=== PATIENT | male | born 1995 | race African-American/Black ===

== ENCOUNTER 2018-09-05 23:01 | Inpatient (IN) | payer OTHER ==
[~2018-09-05] VITALS: Ht 193 cm; Wt 78.4 kg
[2018-09-06 00:14] LABS: HEMATOCRIT 43.7 % (42.0-52.0); HEMOGLOBIN 14.8 g/dl (13.5-17.5); MEAN CORPUSCULAR HEMOGLOBIN 29.7 pg (27.0-33.0); MEAN CORPUSCULAR HGB CONC 33.9 g/dl (32.0-36.5); MEAN CORPUSCULAR VOLUME 87.6 fl (80.0-96.0); PLATELET COUNT, AUTOMATED 309 10^3/uL (150-450); RED BLOOD COUNT 4.99 10^6/uL (4.30-6.10); WHITE BLOOD COUNT 6.6 10^3/uL (4.0-10.0)
[2018-09-06 00:24] LABS: AMPHETAMINES LEVEL URINE NEGATIVE (NEGATIVE); BARBITURATES URINE NEGATIVE (NEGATIVE); BENZODIAZEPINES URINE NEGATIVE (NEGATIVE); CANNABINOIDS URINE NEGATIVE (NEGATIVE); COCAINE METABOLITE URINE NEGATIVE (NEGATIVE); METHADONE URINE NEGATIVE (NEGATIVE); OPIATES URINE NEGATIVE (NEGATIVE); PHENCYCLIDINE URINE NEGATIVE (NEGATIVE)
[2018-09-06 00:39] LABS: ACETAMINOPHEN LEVEL < 2.0 UG/ML (10.0-30.0); ALT/SGPT 38 U/L (12-78); BILIRUBIN,DIRECT 0.2 MG/DL (0.0-0.2); BILIRUBIN,TOTAL 0.7 MG/DL (0.2-1.0); BLOOD UREA NITROGEN 13 MG/DL (7-18); CALCIUM LEVEL 8.4 MG/DL (8.5-10.1); CARBON DIOXIDE LEVEL 29 MEQ/L (21-32); CHLORIDE LEVEL 106 MEQ/L (98-107); CREATININE FOR GFR 1.03 MG/DL (0.70-1.30); ETHYL ALCOHOL (ETHANOL) < 0.003 % (0.000-0.010); GLOMERULAR FILTRATION RATE > 60.0 (>60); GLUCOSE, FASTING 58 MG/DL (70-100); SALICYLATE LEVEL < 1.7 MG/DL (5.0-30.0); SODIUM LEVEL 143 MEQ/L (136-145); TOTAL PROTEIN 7.5 GM/DL (6.4-8.2)
[2018-09-06] MEDS ORDERED: MAALOX 30 ML SUSP *UDC PO PRN (01:15)
[2018-09-06] MEDS ORDERED: traZODone 50 MG TAB PO PRN (01:15)
[2018-09-06] MEDS ORDERED: MOM 30ML SUSPENSION UDC PO PRN (01:15)
[2018-09-06] MEDS ORDERED: ACETAMINOPHEN TAB 650MG DOSE (2X325MG) PO PRN (01:15)
[2018-09-06 01:57] VITALS: BP 142/94
[2018-09-06] MEDS ORDERED: CEPACOL LOZENGE PO PRN (11:45)
--- NOTE | 2018-09-06 12:37 | HPEPDOC ---
General Date of Admission September 06, 2018 at 01:05 Chief Complaint The patient is a 23-year-old male admitted with a reason for visit of Unspecifi ed Depressive Disorder. History of Present Illness Patient is a 23-year-old male, without any prior medical history, brought to the hospital by his spouse on account of suicidal attempt. There is documentation that patient had a knife to his wrist, stating he wanted to end it all. Patient expressed the same sentiment during triage on admission. Reason for episode was due to frustration at work, and frustration with current environment. On assessment today he denies any chest pain, shortness of breath, chills, fever, nausea, headache. Home Medications No Active Prescriptions or Reported Meds Allergies Coded Allergies: No Known Allergies (Unverified , 09/05/18) Past Medical History Medical History Denies Surgical History Denies Family History Significant Family History: No pertinent family hx Denies Social History * Smoker: current smoker (vapes) Alcohol: occationally Drugs: denies A-FIB/CHADSVASC A-FIB History Current/History of A-Fib/PAF?: No Current Oral Anticoagulant The: No Review of Systems Other systems A pertinent 10 point review of systems was completed, negative except as stated in history of presenting illness. Physical Examination Other physical findings GENERAL: NAD SKIN : Warm, dry intact HEENT: Atraumatic, normocephalic, PERRL, moist mucous membrane CARDIOVASCULAR: Regular rate and rhythm, S1S2, no JVD, no edema, distal pulses + and palpable RESP: CTAB, no accessory muscle use noted ABDOMEN: BS+ non distended non tender MS: no joint deformities NEURO: Alert and oriented x 3, CN2-12 grossly intact PSYCH: no anxiety or agitation, appropriate mood and affect. Vital Signs Vital Signs Date Time Temp Pulse Resp B/P (MAP) Pulse Ox O2 Delivery O2 Flow Rate FiO2 09/06/18 01:57 97.9 48 18 142/94 (110) 09/05/18 23:31 100 Room Air Laboratory Data Labs 24H Laboratory Tests 2 09/05/18 23:35: Nucleated Red Blood Cells % (auto) 0.0, Anion Gap 8, Glomerular Filtration Rate > 60.0, Calcium Level 8.4L, Aspartate Amino Transf (AST/SGOT) 41H, Alanine Aminotransferase (ALT/SGPT) 38, Alkaline Phosphatase 93, Total Bilirubin 0.7, Direct Bilirubin 0.2, Total Protein 7.5, Albumin 4.0, Albumin/Globulin Ratio 1.14, Thyroid Stimulating Hormone (TSH) 1.470, Salicylates Level < 1.7L, Urine Amphetamines Screen NEGATIVE, Urine Benzodiazepines Screen NEGATIVE, Urine Opiates Screen NEGATIVE, Urine Methadone Screen NEGATIVE, Acetaminophen Level < 2.0L, Urine Barbiturates Screen NEGATIVE, Urine Phencyclidine Screen NEGATIVE, Urine Cocaine Metabolite Screen NEGATIVE, Urine Cannabinoids Screen NEGATIVE, Ethyl Alcohol Level < 0.003 CBC/BMP Laboratory Tests 09/05/18 23:35 Red Blood Count 4.99, Mean Corpuscular Volume 87.6, Mean Corpuscular Hemoglobin 29.7, Mean Corpuscular Hemoglobin Concent 33.9, Red Cell Distribution Width 11.9 Assessment/Plan Suicidal attempt Anxiety and depression DVT prophylaxis PLAN DVT prophylaxis not indicated that this time since patient is frequently ambulatory in the unit At this time patient has no acute medical problems or underlying comorbidities requiring active follow-up. Medical team will sign off, please re-consult as needed. Plan / VTE VTE Prophylaxis Ordered?: No VTE Exclusion Mechanical Proph: Low Risk for VTE MORE LOCK September 06, 2018 12:37
--- NOTE | 2018-09-06 13:11 | MHHPEPDOC ---
General Date Of Admission: September 06, 2018 Legal Status: 9.39 Chief Complaint "I was angry and grabbed a knife to cut myself went into the bathroom and I did it" History of Present Illness HISTORY OF THE PRESENT ILLNESS: Patient is a 23 -year-old , male, who , according to Ed report: "Pt states that he was in a good mood after returning home from seeing a movie but then he had an argument with his . He got a knife from the kitchen & made some superficial cuts to his wrist. Pt states that he was suicidal at the time he made the cuts, but denies SI now. 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 He does like being in the [employer]. He has been in the [employer] for nine months with no deployments. Pt denies depression but admits to having anxiety. He denies any other mental health sx's. He denies any prior psych hx or tx. TW spoke to pt's & she states that pt was "trying to cut himself" with a kitchen knife & when she asked why he refused to talk to her. She took the kife away from him but he got another one & locked himself in the bathroom so she called 911. She feels that he was just cutting in order to get a reaction out of her." Psychiatric Review of Systems Depression (2 or more weeks): denies Reba (4 or more days of): denies Psychosis: denies PTSD: denies Anxiety: denies Past Psychiatric History Previous Psychiatric Diagnosis: Denies Previous Psychiatric Admissions: Denies Suicide Attempts: Denies Psychiatric Follow-up: None Psychiatric medications: None. Past Medical History Medical Problems None that he is aware of Head Injury: No Seizures: No Hospitalizations: No Surgeries: No Family Medical/Psychiatric HX Medical Problems None Psychiatric Disorders: No Addiction: No Suicide Attemps/Completions: No Addiction History nicotine (He vapes), alcohol (on Saturdays) Social History Childhood: he had a good childhood. Was born in [place], his parents moved to [place] for some time and they returned to [place]. He has siblings, they got along pretty well, he enjoyed going to school, got A's and B's, never was bullied. Abuse/Trauma: Denies Current Living Situation: Off post, in [employer], with his Education: HS diploma Employment: [employer] soldier Social Support: His , his family, his friends in the Legal: Denies Marital: ,no children Mental Status Examination General Appearance: well groomed, appears stated age Build: tall Demeanor: average Eye Contact: average Activity: slowed Behavior: cooperative Speech: clear, spontaneous, reg/rate,rhythm,volume Mood: euthymic Affect: constricted, appropriate, congruent Thought Process: logical/linear Thought Content (Delusions): none reported Thought Content (Other): none reported Thought Content (Aggressive): none reported Perception (Hallucinations): none reported Perception (Other): none reported Cognition (Impairment of): none reported Cognition(Intelligence Est.): average Oriented: Awake, Alert, Oriented times three Insight: fair Judgment: Fair Psychosis: Denies Diagnoses 1. Other specified mood disorder 2. R/O Poor impulse control disorder 3. R/O Cluster B personality traits A-FIB/CHADSVASC A-FIB History Current/History of A-Fib/PAF?: No Current Oral Anticoagulant The: No Age/Risk Factor Scoring CHADSVASC: CHADSVASC Response (Comments) Value Age Risk Factor Age < 65 years old 0 Gender Risk Factor Male 0 Hx of CHF No 0 Hx of HTN No 0 Hx of Stroke/TIA/or VTE No 0 Hx of Diabetes No 0 Hx of Vascular Disease No 0 Total 0 Treatment Treatment ordered: NONE Reason Anticoagulant not given: Not indicated/Yiedl7dees Assessment Patient seems to be minimizing his symptoms, he says he really didn't have an argument with his , it was just "some words" and he felt angry, got up, wnet to the bathroom and cut himself. he says he did it for relieve, however he says he doesn't know anybody who has done that, he has not seen videos or read a rticles in the internet, he just did it because he felt like doing it, he didn't plan it. The cuts are very superficial, nothing that looks as if he would have intended to kill himself and he denies doing it to kill himself. He doesn't need medications at this time, he wants to know when he is going to leave and Director Of Program Management and I explained that we have to wait and observe him and maybe next week we can make a decision. He says that he hopes to go back for training because he is being deployed to [place] and Director Of Program Management mentioned that once he leaves this Unit, he won't be able to touch weapons and that might affect his training, but then again, he has to wait to what his DAVID has to say about it. Initial Treatment Plan 1. Patient was admitted on a [9.39] status. 2. Complete history was obtained. 3. With patients permission, family will be contacted and database will be expanded. 4. Patients medication regimen will be reviewed and changed accordingly. 5. Patient will be provided with protected environment. 6. Patient will be treated with individual, group, and milieu therapies. 7. Patient will receive supportive psych-education. 8. Discharge planning will commence immediately. 9. Outpatient follow-up treatment will be strongly recommended. 10. The initial treatment plan will focus initially on: * Anger * Poor impulse control * Ineffective coping * Risk for suicide. * Substance abuse. ESTIMATED LENGTH OF STAY: 5-7 DAYS. TIME SPENT COUNSELING AND COORDINATING INITIAL CARE: 60 minutes. Vital Signs Vital Signs Date Time Temp Pulse Resp B/P (MAP) Pulse Ox O2 Delivery O2 Flow Rate FiO2 09/06/18 01:57 97.9 48 18 142/94 (110) 09/05/18 23:31 100 Room Air Laboratory Data 24H Labs Laboratory Tests 2 09/05/18 23:35: Nucleated Red Blood Cells % (auto) 0.0, Anion Gap 8, Glomerular Filtration Rate > 60.0, Calcium Level 8.4L, Aspartate Amino Transf (AST/SGOT) 41H, Alanine Aminotransferase (ALT/SGPT) 38, Alkaline Phosphatase 93, Total Bilirubin 0.7, Direct Bilirubin 0.2, Total Protein 7.5, Albumin 4.0, Albumin/Globulin Ratio 1.14, Thyroid Stimulating Hormone (TSH) 1.470, Salicylates Level < 1.7L, Urine Amphetamines Screen NEGATIVE, Urine Benzodiazepines Screen NEGATIVE, Urine Opiates Screen NEGATIVE, Urine Methadone Screen NEGATIVE, Acetaminophen Level < 2.0L, Urine Barbiturates Screen NEGATIVE, Urine Phencyclidine Screen NEGATIVE, Urine Cocaine Metabolite Screen NEGATIVE, Urine Cannabinoids Screen NEGATIVE, Ethyl Alcohol Level < 0.003 CBC/BMP Laboratory Tests 09/05/18 23:35 Red Blood Count 4.99, Mean Corpuscular Volume 87.6, Mean Corpuscular Hemoglobin 29.7, Mean Corpuscular Hemoglobin Concent 33.9, Red Cell Distribution Width 11.9 Medications No Active Prescriptions or Reported Meds Allergies Coded Allergies: No Known Allergies (Unverified , 09/05/18) JORGE GOMEZ MD September 06, 2018 12:35
[2018-09-06 18:41] VITALS: BP 128/64
[2018-09-07 06:43] VITALS: BP 127/60
--- NOTE | 2018-09-07 09:05 | MHIPNPDOC ---
[facility] Progress Note Progress Note DATE OF SERVICE: 09/07/18 HISTORY: As per Dr. 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 He stopped initially after his found him, but then found another knife and repeated. He did not mention this repeated act when we spoke to him today. VITAL SIGNS: See below. NEW TEST RESULTS: Unremarkable. CURRENT MEDICATIONS: See below. 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 Speech: Is normal. Language skills are, unremarkable. Thought processes including: Denies hallucinations, delusions, obsessions, compulsions and phobias. Thought content: Unremarkable. Abstract reasoning, and computation: Intact. Description of associations:. No loose associations. Description of abnormal or psychotic thoughts:. No abnormal or psychotic thinking. Judgment:. Poor. Insight: Limited. Orientation:, Fully oriented. Recent and remote memory: No disturbance. Attention span and concentration: Intact. Language:. No disturbance. Fund of knowledge: Full fund of knowledge. Mood:. Euthymic. Affect:, Congruent. DIAGNOSES: 1. Situational depression. 2., Marital stress. 3., Occupational stress. ASSESSMENT:. This young man is not particularly happy serving in the [employer] recently got and does not seem to have the skills at the moment for these various stressors MANAGEMENT PLAN: No plan to use medications most likely will refer to outpatient. TIME SPENT: 30 minutes. Vital Signs Vital Signs Date Time Temp Pulse Resp B/P (MAP) Pulse Ox O2 Delivery O2 Flow Rate FiO2 09/07/18 06:43 97.7 60 14 127/60 (82) 09/05/18 23:31 100 Room Air Current Medications Current Medications Acetaminophen (Tylenol Tab) 650 mg Q6HP PRN PO HEADACHE or DISCOMFORT; Start 09/06/18 at 01:15 Al Hydrox/Mg Hydrox/Simethicone (Mylanta) 30 ml Q4HP PRN PO HEARTBURN/INDIGESTION; Start 09/06/18 at 01:15 Cetylpyridinium Chloride (Cepacol) 1 brendan Q2HP PRN PO SORE THROAT; Start 09/06/18 at 11:45 Home Med (Med Rec Complete!) ASDIRECTED XX ; Start 09/06/18 at 01:00; Stop 09/06/18 at 01:00; Status DC Magnesium Hydroxide (Milk Of Magnesia) 30 ml DAILYPRN PRN PO CONSTIPATION; Start 09/06/18 at 01:15 Trazodone HCl (Desyrel) 50 mg QHSP PRN PO INSOMNIA; Start 09/06/18 at 01:15 Allergies Coded Allergies: No Known Allergies (Unverified , 09/05/18) A-FIB/CHADSVASC A-FIB History Current/History of A-Fib/PAF?: No Current Oral Anticoagulant The: No Age/Risk Factor Scoring CHADSVASC: CHADSVASC Response (Comments) Value Age Risk Factor Age < 65 years old 0 Gender Risk Factor Male 0 Hx of CHF No 0 Hx of HTN No 0 Hx of Stroke/TIA/or VTE No 0 Hx of Diabetes No 0 Hx of Vascular Disease No 0 Total 0 Treatment Treatment ordered: NONE JB BREWER MD September 07, 2018 09:05
[2018-09-07 18:30] VITALS: BP 138/70
[2018-09-08 06:41] VITALS: BP 110/56
--- NOTE | 2018-09-08 16:52 | MHIPNPDOC ---
[facility] Progress Note Progress Note DATE OF SERVICE: 09/08/18 HISTORY: 23-year-old male who made suicidal gesture when his didn't clean house. VITAL SIGNS: See below. NEW TEST RESULTS:. 9. CURRENT MEDICATIONS: See below. 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 Speech: Is, normal. Language skills are intact. Thought processes including:. No disturbance of thought process. Thought content:. I made a small thing be. Abstract reasoning, and computation: Intact. Description of associations:, Loose association. Description of abnormal or psychotic thoughts:. No psychotic thoughts seemed abnormally concerned about his house being clean. Judgment:, Poor. Insight:, fair Orientation. Full Recent and remote memory: Intact. Attention span and concentration: Intact. Language: As above. Fund of knowledge: Full. Mood: Good. Affect:, Congruent. DIAGNOSES: 1. Situational depression. 2., Marital stress. 3. Job stress. ASSESSMENT: Marital situation led to overreaction MANAGEMENT PLAN: Discharged to outpatient treatment. TIME SPENT:. 30 minutes. Vital Signs Vital Signs Date Time Temp Pulse Resp B/P (MAP) Pulse Ox O2 Delivery O2 Flow Rate FiO2 09/08/18 06:41 96.9 50 14 110/56 (74) 09/05/18 23:31 100 Room Air Current Medications Current Medications Acetaminophen (Tylenol Tab) 650 mg Q6HP PRN PO HEADACHE or DISCOMFORT; Start 09/06/18 at 01:15 Al Hydrox/Mg Hydrox/Simethicone (Mylanta) 30 ml Q4HP PRN PO HEARTBURN/INDIGESTION; Start 09/06/18 at 01:15 Cetylpyridinium Chloride (Cepacol) 1 brendan Q2HP PRN PO SORE THROAT; Start 09/06/18 at 11:45 Home Med (Med Rec Complete!) ASDIRECTED XX ; Start 09/06/18 at 01:00; Stop 09/06/18 at 01:00; Status DC Magnesium Hydroxide (Milk Of Magnesia) 30 ml DAILYPRN PRN PO CONSTIPATION; Start 09/06/18 at 01:15 Trazodone HCl (Desyrel) 50 mg QHSP PRN PO INSOMNIA; Start 09/06/18 at 01:15 Allergies Coded Allergies: No Known Allergies (Unverified , 09/05/18) A-FIB/CHADSVASC A-FIB History Current/History of A-Fib/PAF?: No Current Oral Anticoagulant The: No Age/Risk Factor Scoring CHADSVASC: CHADSVASC Response (Comments) Value Age Risk Factor Age < 65 years old 0 Gender Risk Factor Male 0 Hx of CHF No 0 Hx of HTN No 0 Hx of Stroke/TIA/or VTE No 0 Hx of Diabetes No 0 Hx of Vascular Disease No 0 Total 0 Treatment Treatment ordered: NONE JB BREWER MD September 08, 2018 16:52
[2018-09-08 18:00] VITALS: BP 134/60
[2018-09-09 06:42] VITALS: BP 122/55
[2018-09-09] MEDS ORDERED: SORE15LO PO (11:23)
--- NOTE | 2018-09-10 16:29 | MHDSPDOC ---
[facility] Discharge Summary Discharge Summary DATE OF ADMISSION: September 06, 2018 at 01:05 DATE OF DISCHARGE: September 09, 2018 at 12:00 DISCHARGE DIAGNOSES: 1. Other specified mood disorder 2. R/O Poor impulse control disorder 3. R/O Cluster B personality traits REASON FOR ADMISSION: Chief Complaint "I was angry and grabbed a knife to cut myself went into the bathroom and I did it" History of Present Illness HISTORY OF THE PRESENT ILLNESS: Patient is a 23 -year-old , male, who , according to Ed report: "Pt states that he was in a good mood after returning home from seeing a movie but then he had an argument with his . He got a knife from the kitchen & made some superficial cuts to his wrist. Pt states that he was suicidal at the time he made the cuts, but denies SI now. 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 He does like being in the [employer]. He has been in the [employer] for nine months with no deployments. Pt denies depression but admits to having anxiety. He denies any other mental health sx's. He denies any prior psych hx or tx. TW spoke to pt's & she states that pt was "trying to cut himself" with a kitchen knife & when she asked why he refused to talk to her. She took the kife away from him but he got another one & locked himself in the bathroom so she called 911. She feels that he was just cutting in order to get a reaction out of her." CONSULTANTS INVOLVED: None TREATMENT AND PROGRESS ON THE UNIT : the patient was admitted because after having an argument with his , he grabbed a knife, went into the bathroom and superficially cut his wrist. these cuts were so superficial they were hardly visible. He mentioned he had argued with is and then he went into the bathroom wih the knife but he didn't cut himself, then, he went again with the knife and this time he did cut himself (very superficial cuts). At the time of his evaluation at [facility] he denies having suicidal thoughts and he said that he would never do it again, that he had learned his lesson. He mentioned his came to visit him and they both were OK now, she was not upset at him. He said he was going to f/u at [facility]. All the time that he remained in the Unit, he denied SI, he was not agitated, not violent, not aggressive towards staff or peers. The patient denied having symptoms of depression, marcellus, anxiety, PTSD, phobias, OCD, therefore he didn't receive any medication while at [facility] except for lozenges for sore throat. At the time of his discharge he was not suicidal, not homicidal and not psychotic, he was stable. HOSPITAL COURSE: As above DISCHARGE ASSESSMENT: The patient was not suicidal, not homicidal and not psychotic at the time of his discharge. he was able to contract for safety, he was future orientated. MENTAL STATUS EXAMINATION ON DISCHARGE: General Appearance: well groomed, appears stated age Build: tall Demeanor: average Eye Contact: average Activity: slowed Behavior: cooperative Speech: clear, spontaneous, reg/rate,rhythm,volume Mood: euthymic Affect: constricted, appropriate, congruent Thought Process: logical/linear Thought Content (Delusions): none reported Thought Content (Other): none reported Thought Content (Aggressive): none reported Perception (Hallucinations): none reported Perception (Other): none reported Cognition (Impairment of): none reported Cognition(Intelligence Est.): average Oriented: Awake, Alert, Oriented times three Insight: fair Judgment: Fair Psychosis: Denies MEDICATIONS ON DISCHARGE: Scheduled PRN Benzocaine/Menthol (Sore Throat Lozenge) 1 Each Lozenge, 1 AYUSH PO Q2HP PRN for SORE THROAT, #24 PLAN/FOLLOWUP ARRANGEMENTS: Follow Up Care Education Label * Mental Health Appt 1 * Additional information [address] [place] [address]/1BPURNIMA LICEA [id number]@0900 SPEC/90- 1EBH clinic [facility] [place] G[facility]BERT MEE [id number]@0930 GRP/120- [facility] (P-36) [address] [place] [address]/1BDAVID CASTILLO [id number]@1300 FTR/60-1EBH clinic [address] [place] [address]/1BDAVDI CASTILLO [id number]@1000 FTR/60-1EBH clinic [address] [place] [address]/1BDAVID CASTILLO [id number]@1000 FTR/60-1EBH clinic [facility]/DAVID MAIN [id number]@1000 FTR/60-1E clinic 1ST [facility]/DAVID MA[facility] [id number]@1000 FTR/60-[address] [place] [address] The amount of time spent in the coordination of care for this patient was approximately 20 minutes. Vital Signs/I&Os Vital Signs Date Time Temp Pulse Resp B/P (MAP) Pulse Ox O2 Delivery O2 Flow Rate FiO2 09/09/18 06:42 97.1 62 14 122/55 (77) 09/05/18 23:31 100 Room Air Medications Scheduled PRN Benzocaine/Menthol (Sore Throat Lozenge) 1 Each Lozenge, 1 AYUSH PO Q2HP PRN for SORE THROAT, #24 Allergies Coded Allergies: No Known Allergies (Unverified , 09/05/18) JORGE GOMEZ MD September 10, 2018 16:26
== END 2018-09-09 12:00 | disposition home or self-care (01) | DRG 885 ==
LOC: M ED 23:01 → M ED INP 09-06 01:05 → M PSY 09-06 01:54
PROVIDERS: ADMIT Psychiatry & Neurology Psychiatry; ATTEND Psychiatry & Neurology Psychiatry
DX: F39 Unspecified mood [affective] disorder (principal); R45.851 Suicidal ideations; F63.9 Impulse disorder, unspecified; F60.89 Other specific personality disorders; F41.9 Anxiety disorder, unspecified

== ENCOUNTER 2018-10-15 18:43 | Emergency (ER) | payer OTHER ==
[~2018-10-15] VITALS: Ht 193 cm; Wt 79.5 kg
[~2018-10-15 18:43] MED LIST: SORE15LO PO
[2018-10-15] MEDS ORDERED: methylPREDNISolone INJ 125 MG/2 ML VIAL (J2930) IV ONE (19:15)
[2018-10-15] MEDS ORDERED: NS 1,000 ML IV ONE (19:15)
[2018-10-15 19:32] LABS: BASO # 0.1 10^3/uL (0.0-0.2); BASO % 0.8 % (0.0-1.0); EOS # 0.5 10^3/uL (0.0-0.50); EOS % 6.7 % (0.0-3.0); HEMATOCRIT 43.2 % (42.0-52.0); HEMOGLOBIN 14.7 g/dl (13.5-17.5); LYMPH # 1.7 10^3/uL (1.5-6.5); LYMPH % 22.1 % (24.0-44.0); MEAN CORPUSCULAR HEMOGLOBIN 29.1 pg (27.0-33.0); MEAN CORPUSCULAR VOLUME 85.5 fl (80.0-96.0); MONO # 0.6 10^3/uL (0.0-0.8); MONO % 7.7 % (0.0-5.0); NEUTROPHILS # 4.9 10^3/uL (1.8-7.7); NEUTROPHILS % 62.4 % (36.0-66.0); PLATELET COUNT, AUTOMATED 295 10^3/uL (150-450); RED BLOOD COUNT 5.05 10^6/uL (4.30-6.10); WHITE BLOOD COUNT 7.8 10^3/uL (4.0-10.0)
--- NOTE | 2018-10-15 19:43 | REP ---
Clinical: Cough and dyspnea . Comparison: None . Technique: PA and lateral. Findings: The mediastinum and cardiac silhouette are normal. The lung mckinney are clear and without acute consolidation, effusion, or pneumothorax. The skeletal structures are intact and normal. Impression: 1. No acute cardiopulmonary process. Electronically Signed by Hugh Upton MD 10/15/2018 07:34 P
[2018-10-15] MEDS ORDERED: ONDANSETRON 4MG/2ML VIAL (J2405) IV ONE (19:45)
[2018-10-15] MEDS: ALBUTEROL SULFATE 2.5 MG/0.5 ML INH NEB SOLN NEB PRN ×2 (19:50→21:24)
[2018-10-15 20:05] LABS: ALBUMIN 4.2 GM/DL (3.2-5.2); ALT/SGPT 28 U/L (12-78); BILIRUBIN,DIRECT 0.1 MG/DL (0.0-0.2); BILIRUBIN,TOTAL 0.4 MG/DL (0.2-1.0); BLOOD UREA NITROGEN 9 MG/DL (7-18); CARBON DIOXIDE LEVEL 29 MEQ/L (21-32); CHLORIDE LEVEL 107 MEQ/L (98-107); CREATININE FOR GFR 0.97 MG/DL (0.70-1.30); GLOMERULAR FILTRATION RATE > 60.0 (>60); GLUCOSE, FASTING 73 MG/DL (70-100); POTASSIUM SERUM 3.9 MEQ/L (3.5-5.1); SODIUM LEVEL 140 MEQ/L (136-145); TOTAL PROTEIN 7.5 GM/DL (6.4-8.2)
[2018-10-15] MEDS ORDERED: PRED20TA PO (21:41)
[2018-10-15] MEDS ORDERED: VENTAER INH (21:41)
[2018-10-15] MEDS ORDERED: ALBUTEROL 90 MCG/ACT 8GM HFA INHALER INH ONE (21:45)
[2018-10-15 21:46] VITALS: BP 140/75
--- NOTE | 2018-10-16 21:29 | ECGEPIP ---
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
== END 2018-10-15 21:49 | disposition home or self-care (01) ==
LOC: M ED 18:43
DX: J45.901 Unspecified asthma with (acute) exacerbation (principal)
CPT/HCPCS: 71046; 80048; 80076; 85025; 93005; 96374; 96375; 99284; J2405; J2930

== ENCOUNTER 2019-05-21 14:57 | Emergency (ER) | payer OTHER ==
[~2019-05-21] VITALS: Ht 193 cm; Wt 80.7 kg
[~2019-05-21 14:57] MED LIST changes: +PRED20TA PO; +VENTAER INH
--- NOTE | 2019-05-21 15:54 | REP ---
RIGHT KNEE, FOUR VIEWS: Four views of the right knee performed. No acute fracture, dislocation or intrinsic bone disease is visualized. There may be a small joint effusion. IMPRESSION: No fracture or dislocation. Suspect small joint effusion. Electronically Signed by Dann Graves MD 05/22/2019 07:57 P
[2019-05-21 16:48] LABS: BASO # 0.1 10^3/uL (0.0-0.2); BASO % 0.5 % (0.0-1.0); EOS # 0.7 10^3/uL (0.0-0.5); EOS % 7.8 % (0.0-3.0); HEMATOCRIT 49.1 % (42.0-52.0); LYMPH # 1.8 10^3/uL (1.5-5.0); LYMPH % 19.8 % (24.0-44.0); MEAN CORPUSCULAR HEMOGLOBIN 28.1 pg (27.0-33.0); MEAN CORPUSCULAR HGB CONC 32.6 g/dl (32.0-36.5); MEAN CORPUSCULAR VOLUME 86.1 fl (80.0-96.0); MONO # 0.6 10^3/uL (0.0-0.8); NEUTROPHILS # 5.9 10^3/uL (1.5-8.5); NEUTROPHILS % 64.7 % (36.0-66.0); PLATELET COUNT, AUTOMATED 357 10^3/uL (150-450); WHITE BLOOD COUNT 9.2 10^3/uL (4.0-10.0)
[2019-05-21 17:13] LABS: BLOOD UREA NITROGEN 8 MG/DL (7-18); C REACTIVE PROTEIN QUANTITATIV < 0.30 MG/DL (0.00-0.30); CALCIUM LEVEL 9.2 MG/DL (8.5-10.1); CARBON DIOXIDE LEVEL 31 MEQ/L (21-32); CHLORIDE LEVEL 106 MEQ/L (98-107); CREATININE FOR GFR 0.97 MG/DL (0.70-1.30); GLOMERULAR FILTRATION RATE > 60.0 (>60); GLUCOSE, FASTING 84 MG/DL (70-100); POTASSIUM SERUM 4.6 MEQ/L (3.5-5.1); SODIUM LEVEL 141 MEQ/L (136-145)
[2019-05-21 17:18] LABS: ERYTHROCYTE SEDIMENTATION RATE 2 mm/hr (0-15)
[2019-05-21] MEDS ORDERED: PRED20TA PO (17:30)
[2019-05-21] MEDS ORDERED: KETOROLAC 30 MG/ML VIAL (J1885) IV ONE (17:30)
[2019-05-21] MEDS ORDERED: methylPREDNISolone INJ 125 MG/2 ML VIAL (J2930) IV ONE (17:30)
[2019-05-21 18:00] VITALS: BP 144/80
== END 2019-05-21 18:48 | disposition home or self-care (01) ==
LOC: M ED 14:57
DX: M25.561 Pain in right knee (principal); M25.461 Effusion, right knee; J45.909 Unspecified asthma, uncomplicated
CPT/HCPCS: 36415; 73564; 80048; 83605; 85025; 85652; 86140; 96374; 96375; 99284; J1885; J2930

== ENCOUNTER 2019-06-24 19:19 | Emergency (ER) | payer OTHER ==
[~2019-06-24] VITALS: Ht 193 cm; Wt 83.8 kg
[2019-06-24 19:20] VITALS: BP 177/77
[2019-06-24 20:23] LABS: INFLUENZA A AMPLIFICATION POSITIVE (NEGATIVE); INFLUENZA B AMPLIFICATION NEGATIVE (NEGATIVE)
== END 2019-06-24 21:05 | disposition left against medical advice (07) ==
LOC: M ED 19:19
DX: Z53.21 Procedure and treatment not carried out due to patient leaving prior to being seen by health care provider (principal)